=== PATIENT | female | born 1965 | race Caucasian/White ===

== ENCOUNTER 2018-09-08 06:06 | Emergency (ER) | payer BC ==
[~2018-09-08] VITALS: Ht 152.4 cm; Wt 71.7 kg
[2018-09-08 06:12] VITALS: Ht 152.4 cm; Wt 71.7 kg
[2018-09-08 09:19] VITALS: BP 155/77
== END 2018-09-08 09:29 | disposition home or self-care (01) ==
LOC: ED 06:06
DX: G44.209 Tension-type headache, unspecified, not intractable (principal); I16.0 Hypertensive urgency; I10 Essential (primary) hypertension
CPT/HCPCS: J0780; J1885; Q0162